=== PATIENT | male | born 1960 | race Caucasian/White ===

== ENCOUNTER 2020-07-18 04:55 | Day surgery (SDC) | payer OTHER, BC ==
[2020-07-15 14:37] VITALS: BMI 27.9
[2020-07-18] MEDS ORDERED: BUPIVACAINE HCL/PF 0.75% 10 ML VIAL NR ONE (17:20)
[2020-07-18] MEDS ORDERED: LIDOCAINE HCL 1%, 10 MG/ML (50 mL VIAL) INF ONE (17:20)
[2020-07-18] MEDS ORDERED: IOHEXOL 180 MG/1 ML ML IJ ONE (17:20)
[2020-07-18 18:10] VITALS: BP 130/80; PULSE 72; TEMP 97.1
== END 2020-07-18 17:40 | disposition home or self-care (01) ==
LOC: JASU-SURG 04:55
PROVIDERS: ATTEND Pain Medicine Pain Medicine
PROC: BR16YZZ Fluoroscopy of Lumbar Facet Joint(s) using Other Contrast (ICD-10-PCS; 2020-07-18)
PROC: 3E0T3BZ Introduction of Anesthetic Agent into Peripheral Nerves and Plexi, Percutaneous Approach (ICD-10-PCS; principal; 2020-07-18 16:30)
DX: M47.816 Spondylosis without myelopathy or radiculopathy, lumbar region (principal)
CPT/HCPCS: 76000-TC-FY

== ENCOUNTER 2020-09-05 05:04 | Day surgery (SDC) | payer OTHER, BC ==
[2020-09-04 09:45] VITALS: BMI 27.9
[2020-09-05] MEDS ORDERED: DEXAMETHASONE SOD PHOSPHATE 10 MG/1 ML VIAL ONE (07:24)
[2020-09-05] MEDS ORDERED: LIDOCAINE HCL/PF 1% SDV 5ML VIAL ONE ×2 (07:24→07:30)
[2020-09-05] MEDS ORDERED: SODIUM CHLORIDE 0.9% P/F 10 ML VIAL IJ ONE (07:35)
[2020-09-05] MEDS ORDERED: LIDOCAINE HCL 1% PRESERVATIVE FREE - 30ML VIAL IJ ONE (08:22)
[2020-09-05] MEDS ORDERED: DEXAMETHASONE SOD PHOSPHATE 10 MG/1 ML VIAL IM ONE ×2 (08:26→08:28)
[2020-09-05] MEDS ORDERED: IOHEXOL 180 MG/1 ML ML IJ ONE (08:26)
[2020-09-05 09:17] VITALS: BP 133/89; PULSE 67; TEMP 97.8
== END 2020-09-05 09:00 | disposition home or self-care (01) ==
LOC: JASU-SURG 05:04
PROVIDERS: ATTEND Pain Medicine Pain Medicine
PROC: 3E0R33Z Introduction of Anti-inflammatory into Spinal Canal, Percutaneous Approach (ICD-10-PCS; 2020-09-05)
PROC: 3E0R3BZ Introduction of Anesthetic Agent into Spinal Canal, Percutaneous Approach (ICD-10-PCS; principal; 2020-09-05 08:00)
DX: M48.061 Spinal stenosis, lumbar region without neurogenic claudication (principal); M54.16 Radiculopathy, lumbar region
CPT/HCPCS: 76000-TC-FY; J1100

== ENCOUNTER 2020-10-10 04:28 | Day surgery (SDC) | payer OTHER, BC ==
[2020-10-08 18:03] VITALS: BMI 27.9
[2020-10-10] MEDS ORDERED: DEXAMETHASONE SOD PHOSPHATE 10 MG/1 ML VIAL ONE (07:30)
[2020-10-10] MEDS ORDERED: LIDOCAINE HCL/PF 1% SDV 5ML VIAL ONE (07:30)
[2020-10-10] MEDS ORDERED: LIDOCAINE HCL 1% PRESERVATIVE FREE - 30ML VIAL IJ ONE (08:20)
[2020-10-10] MEDS ORDERED: IOHEXOL 180 MG/1 ML ML IJ ONE (08:21)
[2020-10-10] MEDS ORDERED: DEXAMETHASONE SOD PHOSPHATE 10 MG/1 ML VIAL IM ONE ×2 (08:25→08:31)
[2020-10-10 08:54] VITALS: BP 129/89; PULSE 65; TEMP 98
== END 2020-10-10 08:45 | disposition home or self-care (01) ==
LOC: JASU-SURG 04:28
PROVIDERS: ATTEND Pain Medicine Pain Medicine
PROC: 3E0R33Z Introduction of Anti-inflammatory into Spinal Canal, Percutaneous Approach (ICD-10-PCS; 2020-10-10)
PROC: 3E0R3BZ Introduction of Anesthetic Agent into Spinal Canal, Percutaneous Approach (ICD-10-PCS; principal; 2020-10-10 08:00)
DX: M54.14 Radiculopathy, thoracic region (principal)
CPT/HCPCS: 76000-TC-FY; J1100

== ENCOUNTER 2021-05-08 04:25 | Day surgery (SDC) | payer OTHER, BC ==
[2021-05-07 12:49] VITALS: BMI 25.8
[2021-05-08] MEDS ORDERED: TRIAMCINOLONE ACET 40MG/1ML VIAL ONE (07:44)
[2021-05-08] MEDS ORDERED: BUPIVACAINE HCL/PF 0.75% 10 ML VIAL ONE (07:44)
[2021-05-08] MEDS ORDERED: DEXAMETHASONE SOD PHOSPHATE 10 MG/1 ML VIAL ONE (07:45)
[2021-05-08] MEDS ORDERED: MIDAZOLAM HCL 2 MG/2 ML SINGLE DOSE VIAL ONE (09:16)
[2021-05-08] MEDS ORDERED: PROPOFOL 20 ML ONE ×2 (09:16→09:24)
[2021-05-08] MEDS ORDERED: LIDOCAINE HCL/PF 2% SDV 5ML VIAL ONE (09:24)
[2021-05-08] MEDS ORDERED: LIDOCAINE HCL 1%, 10 MG/ML (50 mL VIAL) INF ONE (09:28)
[2021-05-08] MEDS ORDERED: DEXAMETHASONE SOD PHOSPHATE 10 MG/1 ML VIAL IVPUSH ONE (09:28)
[2021-05-08] MEDS ORDERED: KETOROLAC TROMETHAMINE 30 MG/1 ML VIAL ONE (09:29)
[2021-05-08] MEDS ORDERED: IOHEXOL 180 MG/1 ML ML IJ ONE (09:31)
[2021-05-08] MEDS ORDERED: NORMAL SALINE FLUSH 0.9% 2.5 ML SYRINGE NR ONE (09:31)
[2021-05-08 10:23] VITALS: BP 104/73; PULSE 76; TEMP 97.7
== END 2021-05-08 10:35 | disposition home or self-care (01) ==
LOC: JASU-SURG 04:25
PROVIDERS: ATTEND Pain Medicine Pain Medicine
PROC: 3E0R3BZ Introduction of Anesthetic Agent into Spinal Canal, Percutaneous Approach (ICD-10-PCS; principal; 2021-05-08 09:30)
DX: M54.14 Radiculopathy, thoracic region (principal)
CPT/HCPCS: 76000-TC-FY; J1100